=== PATIENT | male | born 1975 | race Caucasian/White ===

== ENCOUNTER 2022-03-19 12:12 | Emergency (ER) | payer OTHER, SELFPAY ==
[2022-03-19 13:00] VITALS: BP 163/115; RESP 16; O2SAT 98
[2022-03-19 13:34] VITALS: BP 174/118; PULSE 101; RESP 16; TEMP 36.3; O2SAT 98; BMI 29.1
--- NOTE | 2022-03-19 15:12 | ED_ITS ---
HPI - Extremity Problem General: Chief complaint: Extremity Injury, Lower Stated complaint: Left leg is bleeding, can't seem to stop. Time Seen by Provider: 03/19/22 14:24 History of Present Illness: Patient is a 46-year-old male comes to the ED with a bleeding left leg wound. Patient says that approximately 2 days ago he thought he had a tick on his left lower leg any pulled off, but now thinks it was a scab. Since he removed that he has been having bleeding from small wound on leg. He describes the bleeding as a pulsing type bleeding. He has been using pressure bandages to try to stop the bleeding. He does have some varicose veins. He was at urgent care this morning and they took the bandage off and there was excessive bleeding. Bandaged him up and told him to come here to the ED for further evaluation. Patient is not on any blood thinners. Associated symptoms: Deny chest pain, fever(s) or rash Review of Systems Const: Denies: fever(s), chills or fatigue Eyes: Denies: change in vision or eye discomfort ENMT: Denies: throat pain, odynophagia, nasal discharge or nasal congestion Card: Denies: chest pain, palpitations, edema, swelling of feet/ankles, dyspnea on exertion or orthopnea Resp: Denies: dyspnea, productive cough or non-productive cough GI: Denies: abdominal pain, nausea, vomiting, diarrhea, constipation or hematochezia : Denies: flank pain, difficulty urinating, dysuria or hematuria Musc: Denies: neck pain, back pain or extremity swelling Skin/Breast: Reports: new lesions (Small bleeding wound); Denies: rash Neuro: Denies: headache(s), numbness in extremities or weakness in extremities [facility] ED PFSH: Medical History (Updated 03/19/22 @ 16:27 by XIANG Washington) No pertinent family history Surgical History (Updated 03/19/22 @ 16:27 by XIANG Washington) No pertinent past surgical history Physical Exam Const: COMMON NORMALS: no acute distress, patient oriented x3, healthy appearing and alert GENERAL APPEARANCE: cooperative HENMT: COMMON NORMALS: normocephalic HEAD & SCALP: normocephalic MOUTH: Normal oral and palatal mucosa present THROAT: posterior oropharynx normal and uvula midline Neck/C-Spine: COMMON NORMALS: supple GENERAL: Yes normal visual inspection Resp: COMMON NORMALS: normal respiratory effort, No retractions, No use of accessory muscles and clear to auscultation bilaterally AUSCULTATION: clear to auscultation bilaterally Cardio: COMMON NORMALS: regular rate, regular rhythm, S1 normal heart sound present, S2 normal heart sound present, No gallops present (Cardio), No clicks present (Cardio), No murmurs present (Cardio) and Peripheral pulses 2+ throughout RATE: regular rate RHYTHM: regular rhythm HEART SOUNDS: S1 normal heart sound present and S2 normal heart sound present PERIPHERAL PULSES: Peripheral pulses 2+ throughout GI: COMMON NORMALS: Normal to inspection, nondistended, normoactive bowel sounds present, Soft to palpation, non-tender and no masses PALPATION: Yes Soft to palpation : COMMON NORMALS: Yes no CVA tenderness BLADDER/KIDNEY EXAM: Yes no CVA tenderness Back/Pelvis: COMMON NORMALS: no CVA tenderness Extremity: NARRATIVE EXTREMITY EXAM: Left lower leg?patient has small open wound from a varicose vein. It is actively bleeding. Neuro: COMMON NORMALS: patient oriented x3 SENSORIUM/ORIENTATION: Yes alert GAIT: Yes Normal gait present Procedures Laceration Laceration 1: Site: lower extremity (left lower leg) Side (If applicable): left Size (cm): 0.5 Description: linear (Ruptured varicose vein) Depth: simple, single layer Local Anesthetic: lidocaine 1% and with epi Amount of anesthesia used (mL): 3 Pre-repair: irrigated extensively (With normal saline) Skin layer closed with: vicryl Size (cm): 4-0 Number of sutures: 3 (figure 8 stitch) Technique: other (Figure 8 stitch) Course Vital Signs: Vital signs: Vital Signs Temperature 97.4 F L 03/19/22 13:34 Pulse Rate 101 H 03/19/22 13:34 Respiratory Rate 16 03/19/22 13:34 Blood Pressure 174/118 03/19/22 13:34 Pulse Oximetry 98 03/19/22 13:34 Oxygen Delivery Me thod 03/19/22 13:34 MDM - Extremity (Nontraumatic) Medical Decision Making Patient is a 46-year-old male had a ruptured varicose vein that was continually bleeding. Ruptured varicose vein on the left leg was irrigated extensively with normal saline. Lidocaine with epi was used as local and then a couple [id number] stitches were used to close ruptured varicose vein and bleeding was controlled. Patient was placed on a pressure bandage and discharged home. Told to follow-up with his PCP within the next week for reevaluation. Return to ED precautions given. Patient understood and agreed with plan. Discharge Plan Discharge Patient Disposition: Home Clinical Impression: Ruptured varicose vein Condition: Stable Discharge Orders: Discharge ED (Routine); Ordered 03/19/22 Ordered By: Chandler Richardson Discharge Diet: Regular Discharge Activity: Resume usual activity Patient Instructions: Varicose Veins Activity Restrictions/Additional Instructions: Follow-up with medical provider as directed in the next 5 to 7 days for reevaluation. Clean wound area daily with soap and water and keep covered with a pressure bandage daily for the next 2 to 3 days to help prevent any rebleeding. After 3 days you can just cover with Band-Aid. Return to the ER or your medical provider if condition worsens. Please read and understand discharge instructions. Thank you for choosing [facility] for your healthcare needs today. Please realize this is an emergency room and that we are providing you with a medical screening exam and this may not be complete and all inclusive of all the testing and or work up that you may need to determine your ailment or severity of your illness. It is very important that you follow up as instructed or that you return to the Emergency Department should you have concerns or if your condition changes or worsens in any way. Coding Level of Care Code ED Sales Strategy Manager for [employer] Exam Comprehensive
== END 2022-03-19 16:30 | disposition home or self-care (01) ==
PROVIDERS: Emergency Provider Physician Assistant
DX: I83.892 Varicose veins of left lower extremity with other complications (principal)
CPT/HCPCS: 99283